=== PATIENT | male | born 1995 | race African-American/Black ===

== ENCOUNTER 2021-08-24 21:03 | Emergency (ER) | payer OTHER ==
[2021-08-24 21:05] VITALS: TEMP 97.6; BMI 23.3
[2021-08-24] MEDS ORDERED: morphine CARPU-JECT 2 MG/1 ML DISP.SYRIN IVPUSH ONE ×2 (21:15→22:52)
[2021-08-24] MEDS ORDERED: morphine SULFATE 4 MG/ML VIAL ONE ×2 (21:19→21:35)
[2021-08-24] MEDS ORDERED: LACTATED RINGERS SOLUTION 1,000 ML/1,000 ML INFUS.BAG IV SCH (21:30)
[2021-08-24 21:52] LABS: BASO % 0.4 % (0-2.0); EOS % 5.8 % (0-4.5); HEMATOCRIT 40.2 % (35.4-49); HEMOGLOBIN 13.7 GM/dL (11.7-16.9); LYMPH % 34.3 % (8-40); MCH 29.9 pg (25.7-33.7); MEAN CELL VOLUME 87.8 fl (80-96); MEAN PLT VOLUME 8.2 fl (7.5-11.1); MONO % 11.4 % (3.8-10.2); NEUT % 48.1 % (42.8-82.8); PLATELET COUNT 214 10^3/uL (134-434); RBC 4.58 M/mm3 (4.00-5.60); RDW 14.8 % (11.9-15.9); WHITE BLOOD COUNT 7.8 K/mm3 (4.0-10.0)
[2021-08-24 22:03] LABS: INR 1.14 (0.83-1.09); PROTHROMBIN TIME (PATIENT) 12.8 SEC (9.7-13.0)
[2021-08-24 22:07] LABS: ACTIVATED PTT 28.6 SECONDS (25.2-36.5)
[2021-08-24 22:09] LABS: CALCIUM 9.2 mg/dL (8.5-10.1)
[2021-08-24 22:10] LABS: ALBUMIN 4.2 g/dl (3.4-5.0); BLOOD UREA NITROGEN 14.1 mg/dL (7-18)
[2021-08-24] MEDS ORDERED: LIDOCAINE 1%/EPI 1:100000 (50 ML MULTI DOSE VIAL) INF ONE (22:11)
[2021-08-24 22:13] LABS: CREATININE 1.1 mg/dL (0.55-1.3)
[2021-08-24 22:15] LABS: BILIRUBIN,TOTAL 0.4 mg/dL (0.2-1)
[2021-08-24] MEDS ORDERED: LIDOCAINE HCL 1%, 10 MG/ML (50 mL VIAL) SQ ONE (22:15)
[2021-08-24] MEDS ORDERED: LIDOCAINE HCL 1%, 10 MG/ML (20ML VIAL) ONE (22:17)
[2021-08-25 03:20] VITALS: BP 138/76; PULSE 54
== END 2021-08-25 03:30 | disposition home or self-care (01) ==
LOC: JER 21:03
PROC: 0HQGXZZ Repair Left Hand Skin, External Approach (ICD-10-PCS; principal; 2021-08-24)
PROC: 3E033GC Introduction of Other Therapeutic Substance into Peripheral Vein, Percutaneous Approach (ICD-10-PCS; 2021-08-24)
DX: S61.432A Puncture wound without foreign body of left hand, initial encounter (principal); S41.131A Puncture wound without foreign body of right upper arm, initial encounter; X99.1XXA Assault by knife, initial encounter
CPT/HCPCS: 36415; 73110-TC-LT-FY; 73130-TC-LT-FY; 73201-TC-RT; 80053; 85025; 85610; 85730; 86850; 86900; 86901; 93005; 93010; 99285-25; C9803; U0003; U0005

== ENCOUNTER 2021-09-12 22:16 | Emergency (ER) | payer OTHER ==
[2021-09-12 23:03] VITALS: BP 107/69; PULSE 70; TEMP 97.9; BMI 22.5
== END 2021-09-12 23:50 | disposition home or self-care (01) ==
LOC: JERFT 22:16 → JER 22:16 → JERFT 23:50
DX: S61.412A Laceration without foreign body of left hand, initial encounter (principal); Y99.9 Unspecified external cause status; Z48.02 Encounter for removal of sutures
CPT/HCPCS: 99281-25

== ENCOUNTER 2021-11-27 09:30 | Emergency (ER) | payer OTHER ==
[2021-11-27 09:37] VITALS: TEMP 97.6; BMI 22.5
[2021-11-27] MEDS ORDERED: DIPHTH,PERTUSS(ACELL),TET 0.5 ML DISP.SYRIN IM ONE ×3 (09:38→11:10)
[2021-11-27 11:03] LABS: BASO % 0.1 % (0-2.0); EOS % 0.3 % (0-4.5); HEMATOCRIT 39.9 % (35.4-49); HEMOGLOBIN 13.4 GM/dL (11.7-16.9); LYMPH % 6.8 % (8-40); MCH 29.4 pg (25.7-33.7); MCHC 33.5 g/dl (32.0-35.9); MEAN CELL VOLUME 87.9 fl (80-96); MEAN PLT VOLUME 8.7 fl (7.5-11.1); MONO % 6.5 % (3.8-10.2); NEUT % 86.3 % (42.8-82.8); PLATELET COUNT 203 10^3/uL (134-434); RBC 4.54 M/mm3 (4.00-5.60); RDW 15.3 % (11.9-15.9); WHITE BLOOD COUNT 12.3 K/mm3 (4.0-10.0)
[2021-11-27 11:17] LABS: CHLORIDE 104 mmol/L (98-107); SODIUM 139 mmol/L (136-145)
[2021-11-27 11:19] LABS: INR 1.06 (0.83-1.09); PROTHROMBIN TIME (PATIENT) 12.2 SEC (9.7-13.0)
[2021-11-27 11:20] LABS: ANION GAP 6 MMOL/L (8-16); BLOOD UREA NITROGEN 16.2 mg/dL (7-18); CALCIUM 9.1 mg/dL (8.5-10.1); CO2 28 mmol/L (21-32); GLUCOSE,RANDOM 95 mg/dL (74-106)
[2021-11-27 11:21] LABS: ALBUMIN 4.1 g/dl (3.4-5.0); LIPASE 125 U/L (73-393)
[2021-11-27 11:22] LABS: ACTIVATED PTT 27.7 SECONDS (25.2-36.5)
[2021-11-27 11:23] LABS: SGOT/AST 30 U/L (15-37); SGPT/ALT 20 U/L (13-61)
[2021-11-27 11:24] LABS: CREATININE 1.1 mg/dL (0.55-1.3)
[2021-11-27 11:25] LABS: BILIRUBIN,TOTAL 0.6 mg/dL (0.2-1); TOT PROT 7.7 g/dl (6.4-8.2)
[2021-11-27 11:26] LABS: ALK PHOS 56 U/L (45-117)
[2021-11-27] MEDS ORDERED: ACETAMINOPHEN 500 MG TABLET (FP) PO ONE (12:26)
[2021-11-27 12:41] VITALS: BP 107/55; PULSE 64
[2021-11-27] MEDS ORDERED: ACETAMINOPHEN 325 MG TABLET (FP) ONE (12:42)
== END 2021-11-27 12:47 | disposition home or self-care (01) ==
LOC: JER 09:30
PROC: 0HQ1XZZ Repair Face Skin, External Approach (ICD-10-PCS; principal; 2021-11-27)
PROC: 3E0234Z Introduction of Serum, Toxoid and Vaccine into Muscle, Percutaneous Approach (ICD-10-PCS; 2021-11-27)
DX: S01.81XA Laceration without foreign body of other part of head, initial encounter (principal); V29.9XXA Motorcycle rider (driver) (passenger) injured in unspecified traffic accident, initial encounter
CPT/HCPCS: 36415; 70450-TC; 70486-TC; 71260-TC; 72125-TC; 74177-TC; 80053; 80307; 82962; 83690; 85025; 85610; 85730; 86850; 86900; 86901; 90715; 93005; 93010; 99285-25; Q9967